=== PATIENT | female | born 1985 | race Caucasian/White ===

== ENCOUNTER 2025-01-08 09:20 | Day surgery (SDC) | payer OTHER ==
--- NOTE | 2025-01-02 14:15 | ELECTROCARDIOGRAPH REPORT ---
[facility] Test Date: 2025-01-02 Test Time: 14:13:24 Pat Name: PERRY SMALLWOOD Department: [facility]-PRE-OP Patient ID: [facility]-[id number] Room: Gender: F Instructional Interventionist: MARIBEL : 1985 Requested By: JACEK BERUMEN Order Number: [id number] Reading MD: Dr. DONALD Apodaca Measurements Intervals [place] Rate: 67 P: 60 MS: 106 QRS: 79 QRSD: 83 T: 74 QT: 359 QTc: 379 Interpretive Statements Sinus rhythm Short MS interval Electronically Signed On 01-02-2025 16:07:[address] DONALD Apodaca Please click the below link to view image of tracing.
[2025-01-02 14:46] LABS: BASOPHILS # (AUTO) 0.1 X10'3 (0-0.2); BASOPHILS % (AUTO) 0.7 % (0-1); EOSINOPHILS # (AUTO) 0.1 X10'3 (0-0.9); EOSINOPHILS % (AUTO) 1.5 % (0-6); LYMPHOCYTES # (AUTO) 2.9 X10'3 (1.1-4.8); LYMPHOCYTES % (AUTO) 33.5 % (21-51); MEAN CORPUSCULAR HEMOGLOBIN 32.8 PG (27.0-31.0); MEAN CORPUSCULAR HGB CONC 34.2 g/dL (33.0-36.5); MONOCYTES # (AUTO) 0.8 X10'3 (0-0.9); MONOCYTES % (AUTO) 9.6 % (2-12); NEUTROPHILS # (AUTO) 4.7 X10'3 (1.8-7.7); NEUTROPHILS % (AUTO) 54.7 % (42-75); PRE OP HEMATOCRIT 48.3 % (35.0-45.0); PRE OP HEMOGLOBIN 16.5 g/dL (12.0-16.0); PRE OP PLATELET COUNT 247 X10'3 (140-440); PRE OP WHITE BLOOD COUNT 8.6 10'3 (4.8-10.8); RED BLOOD COUNT 5.03 X10'6 (4.20-5.60); RED CELL DISTRIBUTION WIDTH 14.8 % (11.5-14.5)
[2025-01-02 15:01] LABS: PRE OP PROTIME 10.3 SECONDS (9.0-12.0)
[2025-01-02 15:13] LABS: ALBUMIN 3.8 G/DL (3.4-5.0); ALKALINE PHOSPHATASE 103 IU/L (46-116); BLOOD UREA NITROGEN 6 MG/DL (7-18); BUN/CREATININE RATIO 9.8 (10.0-20.0); CHLORIDE 103 MMOL/L (99-107); CREATININE 0.61 MG/DL (0.40-0.90); PRE OP ALT 26 U/L (30-65); PRE OP ANION GAP 6 (8-16); PRE OP AST 20 U/L (10-37); PRE OP BILIRUB, TOTAL 0.2 MG/DL (0.0-1.0); PRE OP SODIUM 139 MMOL/L (135-145); TOTAL PROTEIN 7.6 G/DL (6.4-8.2); eGFR > 90 ML/MIN
[2025-01-02 15:20] LABS: PRE OP GLUCOSE 75 MG/DL (70-104)
--- NOTE | 2025-01-02 15:44 | RADIOLOGY REPORT ---
CHEST RADIOGRAPH Indication: Pain Technique: Frontal and lateral view of the chest was obtained Comparison: None FINDINGS: Lines and Tubes: None Lungs: Clear Pleura: No effusion. No pneumothorax. Cardiomediastinal contours: Unremarkable Bones: Unremarkable IMPRESSION: No evidence of acute disease.
[2025-01-08] VITALS (12 sets, daily range): BP systolic 113–162; BP diastolic 68–108; PULSE 58–99; RESP 10–17; TEMP 99.2; O2SAT 94–100
[~2025-01-08] VITALS: Ht 160 cm; Wt 45.8 kg
[~2025-01-08 09:20] MED LIST: BACL10TA2 PO; GABA300C PO; IBUP-1986 PO; VANCOMYCIN 1GM 200ML H20 (PEG) 200 ML IV ONE; ceFAZolin 2gm in dextrose, iso 50 ML IV ONE; vancomycin/NS 1 GM ADD-VANTAGE 250 ML IV ONE
[2025-01-08] MEDS: ringers solution, lacted 1,000 ML IV SCH (09:56)
[2025-01-08] MEDS: famotidine 20mg tablet PO ONE (09:56)
[2025-01-08] MEDS ORDERED: BUPIVAcaine 0.5% inj/PF 30 ML ONE (10:33)
[2025-01-08] MEDS ORDERED: bacitracin 15gm ointment TP ONE (10:33)
[2025-01-08] MEDS ORDERED: LIDOcaine 1% W/epiNEPHrine 1:100,000 20ml vial ONE (10:34)
[2025-01-08] MEDS ORDERED: sevoflurane 250ml liquid IH ONE (14:10)
[2025-01-08] MEDS ORDERED: propofol inj 20 ML IV ONE (14:11)
[2025-01-08] MEDS ORDERED: dexamethasone sod phosphate 4mg/ml inj. ONE (14:11)
[2025-01-08] MEDS ORDERED: ROPIVAcaine 0.5% (5mg/ml) 30ml vial ONE ×2 (14:11)
[2025-01-08] MEDS ORDERED: ondansetron/PF 4mg/2ml inj ONE (14:11)
[2025-01-08] MEDS ORDERED: LIDOcaine 1%/PF 5ML 10 MG/ML VIAL ONE (14:11)
[2025-01-08] MEDS ORDERED: fentaNYL/PF 50MCG/1 ML 2ML syringe ONE (14:12)
[2025-01-08] MEDS: BUPIVAcaine 0.5% inj/PF 30 ml vial IJ ONE (16:00)
[2025-01-08] MEDS ORDERED: hydrALAZINE 20mg/ml inj. IV PRN (16:05)
[2025-01-08] MEDS ORDERED: acetaminophen 1,000mg/100ml IV 100 ML IV PRN (16:05)
[2025-01-08] MEDS ORDERED: meperidine/PF 25mg/ml syringe IV PRN (16:05)
[2025-01-08] MEDS ORDERED: ondansetron/PF 4mg/2ml inj IV PRN (16:05)
[2025-01-08] MEDS ORDERED: HYDROmorphone/PF 0.2 MG/ML SYRINGE IV PRN ×2 (16:05)
[2025-01-08] MEDS ORDERED: ringers solution, lacted 1,000 ML IV SCH (16:05)
[2025-01-08] MEDS ORDERED: labetalol 20mg/4ml (5mg/ml) syringe IV PRN (16:05)
[2025-01-08] MEDS ORDERED: proCHLORperazine 10 MG/2 ml inj IV PRN (16:05)
[2025-01-08] MEDS: morphine 4 MG/ML inj SYRINge IV PRN (16:33)
[2025-01-08] MEDS: morphine 2 MG/ML inj. syringe IV PRN (16:42)
--- NOTE | 2025-01-08 18:01 | OPERATIVE REPORT ---
DATE OF SURGERY: 01/08/2025 DICTATING PHYSICIAN: Ruiz Barkley DPM SURGEON: Ruiz Barkley DPM PREOPERATIVE DIAGNOSES: * Fracture of second toe with angular deformity, right foot. 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 * Tear of the anterior talofibular ligament, right ankle. * Tear of the peroneus brevis tendon, right ankle. POSTOPERATIVE DIAGNOSES: * Fracture of second toe with angular deformity, right foot. 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 * Tear of the anterior talofibular ligament, right ankle. * Tear of the peroneus brevis tendon, right ankle. PROCEDURES: * Arthroplasty of second toe right with pinning of toe, second toe, right foot. * Fusion of the first metatarsophalangeal joint right foot with rigid internal fixation. * Repair of the peroneus brevis tendon, right ankle. * Modified Brostrom procedure for repair of the right ankle collateral ligament as well as Arthrex internal brace system for secondary indirect repair of the anterior talofibular ligament. COMPLICATIONS: None. The patient was stable at the conclusion of case. INDICATIONS FOR SURGERY: This is a Workers' Compensation claim. The patient had been injured at work with significant pain to the right foot and ankle. Nonsurgical measures consisting of CAM boot immobilization, lifestyle modifications, anti-inflammatory medication, and different types of shoe wear have not been successful in reducing a chief complaint of pain and disability. Therefore, surgical intervention was considered justified. ESTIMATED BLOOD LOSS: Less than 5 mL. No complications noted during this case. ANESTHESIA: General with a popliteal and adductor canal block. The patient was also given an ankle block at the end of the case with Marcaine plain. 2 grams of Cefazolin was given IV about 30 minutes prior to skin incision. DESCRIPTION OF PROCEDURE: The patient was escorted to the operating room suite where she was prepared and draped in the usual sterile technique. The patient was placed in the supine position. The tourniquet was inflated to 250 mmHg after exsanguinating the right lower extremity. The tourniquet was inflated at the level of the right thigh. First area of attention was the peroneal tendon. An incision was made along the course of the peroneal tendons, right ankle. The peroneus brevis tendon was identified and an interstitial tear was noted several centimeters in length and this was repaired by way of debriding the tendon, repairing the tendon and then tubularizing the tendon with 4-0 Prolene. After direct repair of the tendon with this Prolene, the tendon was then tubularized with the suture. The inferior extensor retinaculum was then re-tagged to maintain the tendons under the retinaculum. The next part of the procedure consisted of a separate skin incision for repair of the anterior talofibular ligament. This was done by way of a modified Brostrom repair and was then reinforced with a secondary repair of the disrupted anterior talofibular ligament with the use of an Arthrex internal brace system. The foot was placed in dorsiflexion and eversion during the repair and it was noted to be stable and in good position at the conclusion of this part of the procedure. No further anterior drawer sign was noted intraoperatively. The third procedure consisted of fusion of the first metatarsophalangeal joint, right foot. This was done by making a separate skin incision along the dorsomedial aspect of the right foot just medial to the extensor hallucis longus tendon. This incision was then deepened down to full-thickness down to the joint. An arthrotomy was performed. The joint was inspected. 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 A fusion was performed by resecting the articular surfaces of the head of the first metatarsal and the base of the proximal phalanx. This was done with a microsagittal saw. A K-wire was used to make multiple punctate holes into the articulating surfaces to promote bony bleeding. Irrigation was used throughout the case. Irrisept was also used. The hallux was placed in about 10 degrees of dorsiflexion and parallel to the second toe in the transverse plane. The two bone cooper from [place] 28 were then implanted for rigid internal fixation of the first metatarsophalangeal joint. A C-arm was used throughout the case and the C-arm confirmed the appropriate alignment of the fusion site. The last part of the procedure consisted of a repair of the second toe, which had an angular deformity due to the fracture as well as a hammertoe deformity. A separate dorsal skin incision was made at the level of the proximal interphalangeal joint of the right 2nd toe, and an arthroplasty was performed of the proximal phalangeal head and then the base of the middle phalanx articular cartilage was resected with the use of a bone rongeur. A transverse tenotomy was performed at the level of the second toe as well to get into the proximal interphalangeal joint. A K-wire was used to fixate the toe in the correct alignment and position in both the sagittal and transverse planes. C-arm confirmed appropriate alignment of the second toe. At the conclusion of this case, the K-wire was bent at the distal aspect of the toe and then was capped with the appropriate pin cap. Tissues were closed in layers. The tourniquet was deflated. Irrisept was used for irrigation as well as saline. Capillary refill time was noted to be instantaneous upon completion of the procedures. There were four separate incisions made during this case for four separate procedures. These procedures were distinct and separate for each procedure. The patient had the appropriate postoperative dressing applied and was then escorted to PACU with the appropriate postoperative instructions. Ruiz Barkley DPM TID: [id number] RECEIPT: [id number] LIZ HOWARD
[2025-01-08] MEDS: oxyCODONE IR 5mg (immed. release) tablet PO ONE (18:03)
== END 2025-01-08 18:30 | disposition home or self-care (01) ==
LOC: PAS 09:20
PROVIDERS: ATTEND Podiatrist Foot & Ankle Surgery
DX: S86.311A Strain of muscle(s) and tendon(s) of peroneal muscle group at lower leg level, right leg, initial encounter (principal); S92.911A Unspecified fracture of right toe(s), initial encounter for closed fracture; M76.71 Peroneal tendinitis, right leg; S93.491A Sprain of other ligament of right ankle, initial encounter; M20.41 Other hammer toe(s) (acquired), right foot; M21.6X1 Other acquired deformities of right foot; Z72.89 Other problems related to lifestyle; G89.18 Other acute postprocedural pain; Z79.01 Long term (current) use of anticoagulants; Z79.899 Other long term (current) drug therapy; Z90.710 Acquired absence of both cervix and uterus; Z98.890 Other specified postprocedural states; F17.210 Nicotine dependence, cigarettes, uncomplicated
CPT/HCPCS: 27659; 27698; 28285; 28750; 36415; 64450; 71046; 73620; 76942; 80053; 82948; 85025; 85610; 85730; 93005; A6222; C1713; J0665; J0690; J1100; J2270; J2405; J2704; J2795; J3010; J3490; J7030; J7120; L8641; Z7506; Z7508; Z7512; 76000; A4215; A4618; A6253; A6446; A6449; A6455; A7000; J3370; J3372